=== PATIENT | female | born 1955 | race Caucasian/White ===

== ENCOUNTER → 2018-08-18 | Outpatient (CLI) | payer OTHER ==
--- NOTE | 2018-08-18 10:46 | KCIC ---
EXAM: MRI LEFT KNEE DATE: 08/18/2018 8:00 AM CLINICAL INDICATION: Left knee pain. COMPARISON: None. TECHNIQUE: Multiplanar, multisequence MRI of the left knee was performed without contrast. FINDINGS: Note, exam is mildly limited as the dedicated knee coil was unable to be used given sizing limitations. Small joint body is seen within the lateral suprapatellar gutter. Small knee joint effusion. No Cesar's cyst. The ACL and PCL are intact. The MCL, fibular collateral ligament, biceps femoris and IT band are intact. The popliteus tendon is normal in signal and morphology, intact. Extensor mechanism is intact with lateral patellar tracking. Medial meniscus: There is blunting of the body segment of the medial meniscus with irregular margins consistent with radial tear. Mild blunting of the posterior horn to be seen with prior meniscectomy change. Lateral meniscus: Intact Full-thickness chondral effacement of the patella with subchondral edema and cystic change. In addition lateral trochlear chondral thinning is seen. In addition there are regions of chondral thinning and chondral effacement with subchondral cystic change and edema of the medial compartment. Tricompartmental osteophytes are seen. Suprapatellar fat pad edema may be seen with anterior knee pain/impingement. IMPRESSION: 1. Blunting of the posterior horn and body of the medial meniscus likely from prior meniscectomy. However increased signal and irregularity in the body segment likely superimposed meniscal tear. 2. Left knee joint osteoarthritis with medial and patellofemoral compartment chondral effacement and thinning with subchondral cystic change and edema. Associated tricompartmental osteophytes are seen. 3. Small joint body is suspected within the lateral suprapatellar gutter Electronically signed by: Elton Javier MD (08/18/2018 10:44 AM) [facility]-[id number]
== END | disposition home or self-care (01) ==
LOC: KCIC MRI 07:50
PROVIDERS: ATTEND Orthopaedic Surgery
DX: M17.12 Unilateral primary osteoarthritis, left knee (principal); M25.762 Osteophyte, left knee; M25.462 Effusion, left knee; R60.0 Localized edema
CPT/HCPCS: 73721

== ENCOUNTER → 2018-11-19 | Outpatient (CLI) | payer OTHER ==
--- NOTE | 2018-11-19 10:08 | KCIC ---
MRI Lumbar Spine without contrast History: Previous falls, right low back pain into the right lower extremity, numbness Technique: Multiplanar, multi sequential noncontrast MR imaging was performed of the lumbar spine. Comparison: None Findings: Lumbar vertebral body stature is overall preserved. There is grade 1 anterior spondylolisthesis at L4-5 and to lesser degree at L5-S1, negligible posterior subluxation L3 relative to L4. Conus terminates near L1. There is moderate degenerative disc disease at L3-4, to lesser degree L4-5 and L2-3, mild degenerative disease at L1-2, mild disc desiccation L5-S1. There is very minimal L2-3 endplate edema likely reactive/degenerative in etiology. There is degenerative endplate change at L3-4 and L5-S1. There is large hemangioma of the T11 vertebral body. There is very mild levoscoliosis of the lumbar spine. L1-L2: There is minimal disc osteophyte complex and bulge. Spinal canal and neural foramina are adequate. L2-L3: There is minimal disc osteophyte complex with superimposed shallow protrusion eccentric to the right lateral recess about 2 mm AP. There is mild narrowing of the far right lateral recess. There is mild buckling of the ligamentum flavum and facet degenerative change. Neural foramina are overall adequate. L3-L4: There is negligible disc osteophyte complex and bulge. There is mild buckling of the ligamentum flavum and facet hypertrophic change. Spinal canal is overall adequate. There is mild narrowing of the left neural foramen, right neural foramen adequate. L4-L5: There is moderate to severe facet degenerative change and moderate buckling of the ligamentum flavum. There is partial uncovering of the posterior aspect of the disc due to spondylolisthesis, minimal superimposed disc osteophyte complex. There is [id number] narrowing of the far lateral recesses greater on the left, also mild narrowing of the central canal. There is mild left and moderate right neural foramina compromise by disc osteophyte complex contacting undersurface exiting right L4 nerve root greater distally in the neural foramen. L5-S1: There is moderate facet degenerative change greater on the left. Spinal canal and neural foramina are adequate. Impression: 1. There is multilevel mild abnormal alignment as stated most notable grade 1 anterior spondylolisthesis at L4-5. There is multilevel facet degenerative change. There is degenerative disc disease greatest at L3-4, mild spondylosis. 2. There is [id number] narrowing of the far lateral recesses greater on the left at L4-5, also mild narrowing of the central canal at the level. 3. There is moderate right and mild left L4-5 neural foramina compromise, minimal narrowing on the left at L3-4. Electronically signed by: Ben Lei MD (11/19/2018 10:05 AM) [facility]-[id number]
== END | disposition home or self-care (01) ==
LOC: KCIC MRI 09:03
PROVIDERS: ATTEND Anesthesiology Pain Medicine
DX: M43.17 Spondylolisthesis, lumbosacral region (principal); M47.27 Other spondylosis with radiculopathy, lumbosacral region; M48.061 Spinal stenosis, lumbar region without neurogenic claudication; M51.16 Intervertebral disc disorders with radiculopathy, lumbar region; M41.86 Other forms of scoliosis, lumbar region; M25.78 Osteophyte, vertebrae
CPT/HCPCS: 72148

== ENCOUNTER → 2019-12-29 | Outpatient (CLI) | payer OTHER ==
--- NOTE | 2019-12-29 13:16 | KCIC ---
STUDY: MRI of the right shoulder without contrast INDICATION: Right shoulder pain. Decreased range of motion. COMPARISON: None available. TECHNIQUE: Multiplanar MR imaging of the right shoulder performed without the use of intravenous or intra-articular contrast. FINDINGS: Degraded study due to motion artifact. AC joint: Subacromial decompression and presumed distal clavicular resection. Heterogeneous fluid mildly distends the subacromial subdeltoid bursa measuring up to 4.5 mm in thickness. Rotator cuff: Close assessment of the cuff is made difficult by motion. Heterogeneous signal and morphology of the supraspinatus both at and medial to the footprint. There is presumably high-grade tearing at a few locations with 75 percent or more cross-sectional involvement. Background tendinosis. Heterogeneity and partial tearing of the infraspinatus as well, most pronounced anteriorly to the supraspinatus/infraspinatus junction, which is at least intermediate grade with 50 percent or more cross-sectional involvement. The teres minor is intact. Subscapularis tendinosis and partial-thickness articular sided tearing. Mild supraspinatus, infraspinatus and subscapularis fatty infiltration without significant atrophy. Labrum: Multifocal labral degeneration/degenerative tearing. Long head biceps tendon: Nonvisualized within the bicipital groove either fully torn and retracted or surgically released. Cartilage: Difficult to evaluate due to motion. Subchondral cystic change at the superior glenoid suggest chondrosis in this region. The humeral head cartilage is incompletely assessed. Bones: Degenerative osseous proliferation at the greater tuberosity and to a lesser extent at the lesser tuberosity. No acute fracture. Miscellaneous: Small shoulder effusion. Mild deltoid muscular fatty infiltration. Scattered subcentimeter axillary lymph nodes. Small volume mildly complex fluid within the empty long head biceps tendon sheath. Impression: 1. The study is degraded by motion artifact limiting the diagnostic utility. 2. Very heterogeneous signal and morphology of the supraspinatus more so than the infraspinatus related to a combination of tendinosis and partial-thickness tearing, as detailed above. No large full-thickness tear defect is identified but small full-thickness components are difficult to exclude. Tendinosis and partial-thickness articular sided tearing of the subscapularis as well. Mild fatty infiltration of the rotator cuff muscles with the exception of the teres minor. 3. Multifocal labral degeneration/degenerative tearing. The long head biceps tendon is not visualized within the bicipital groove either fully torn and retracted or surgically released. Correlate with prior surgical history. 4. Presumed glenoid chondral loss superiorly. Humeral head cartilage is poorly evaluated due to motion. 5. Mild subacromial subdeltoid bursitis and a small shoulder joint effusion. Electronically signed by: DANELLE JONES MD (12/29/2019 1:13 PM) [id number]
== END ==
LOC: KCIC MRI 07:49
PROVIDERS: ATTEND Orthopaedic Surgery
DX: M75.111 Incomplete rotator cuff tear or rupture of right shoulder, not specified as traumatic (principal); M75.51 Bursitis of right shoulder; M25.411 Effusion, right shoulder
CPT/HCPCS: 73221

== ENCOUNTER → 2020-05-29 | Outpatient (CLI) | payer OTHER ==
--- NOTE | 2020-05-29 13:24 | KCIC ---
MR LUMBAR SPINE WO [id number] Date: 05/29/2020 11:30 AM Indication: Reason: LUMBAR STENOSIS/NEUROGENIC CLAUDICATION / Spl. Instructions: / History: Worseni ng LBP with BLE radiculopathy. Prioe surg 06/2019. Comparison: 11/19/2018. Technique: Multi-planar multi-weighted magnetic resonance imaging of the lumbar spine was performed w ithout intravenous contrast using the standard lumbar spine protocol. FINDINGS: Postsurgical changes of interval posterior decompression at L4-5. Trace retrolisthesis at L3-4. 8 mm anterolisthesis at L4-5. Trace anterolisthesis at L5-S1. No acute fracture. Mild to moderate multilevel degenerative disc desiccation and disc height loss. Degenerativ e endplate edema at L4-5, and to a lesser extent L2-3 and L3-4. The conus terminates at a normal level. No abnormal signal is seen within the visualized distal spina l cord. No clumping of intrathecal nerve roots. No soft tissue abnormality in the visualized abdomen or pelvis. T12-L1: Disc bulge. Mild facet arthropathy. No significant spinal stenosis or neural foraminal narrow ing. L1-L2: Disc bulge. Mild facet arthropathy. No significant spinal stenosis. Mild bilateral neural fora dilma narrowing. L2-L3: Disc bulge. Mild facet arthropathy. No significant spinal stenosis. Mild bilateral neural fora dilma narrowing. L3-L4: Disc bulge. Mild facet arthropathy. Mild spinal stenosis and lateral recess narrowing. Moderat e bilateral neural foraminal narrowing. L4-L5: Posterior decompression. Severe facet arthropathy. Mild spinal canal stenosis. Soft tissue in the lateral recesses and neural foramen could be disc material or granulation tissue, incompletely ch aracterized without intravenous contrast. Moderate right and mild left lateral recess narrowing. Mode rate to severe neuroforaminal narrowing. L5-S1: Disc bulge. Moderate right and severe left facet arthropathy. No significant spinal stenosis o r neural foraminal narrowing. IMPRESSION: Lumbar spondylosis, detailed level by level above. Interval posterior decompression at L4-5. Electronically signed by: Ben Clemons MD (05/29/2020 1:22 PM) [id number]
--- NOTE | 2020-05-29 16:51 | KCIC ---
Study: XR LUMBAR SPINE 2-3V Indication: Lumbar stenosis. Neurogenic claudication. Worsening low back pain with bilateral lower ex tremity radiculopathy. Comparison: Lumbar spine MRI also performed on 05/29/2020 Findings: The extent of anterolisthesis of L4 on L5 appears greater by radiography relative to the MRI measurin g approximately 1.2 cm compared to 0.7 cm. No appreciable change in the degree of anterolisthesis upo n flexion or extension. Mild retrolisthesis of L3 on L4 that does not change with flexion/extension. Discogenic arthrosis with disc space narrowing mainly from L1-L2 through L4-L5. Predominantly lower l umbar facet degeneration favored greatest at L4-L5. Impression: Anterolisthesis of L4 on L5 is more pronounced by radiography relative to the same day MRI but there is no appreciable change in the degree of listhesis with flexion or extension. Mild retrolisthesis of L3 on L4 without pathologic motion. Multilevel facet degeneration and discogenic arthrosis better ev aluated on the MRI. Electronically signed by: DANELLE JONES MD (05/29/2020 4:48 PM) [id number]
== END ==
LOC: KCIC MRI 10:47
PROVIDERS: ATTEND Physician Assistant
DX: M47.26 Other spondylosis with radiculopathy, lumbar region (principal); M51.16 Intervertebral disc disorders with radiculopathy, lumbar region; M53.3 Sacrococcygeal disorders, not elsewhere classified; M48.062 Spinal stenosis, lumbar region with neurogenic claudication; M12.88 Other specific arthropathies, not elsewhere classified, other specified site; M43.16 Spondylolisthesis, lumbar region; M48.8X6 Other specified spondylopathies, lumbar region
CPT/HCPCS: 72100; 72148

== ENCOUNTER → 2021-06-20 | Outpatient (CLI) | payer OTHER ==
--- NOTE | 2021-06-20 17:08 | KCIC ---
EXAM: MRI right shoulder DATE: 06/20/2021 8:35 AM COMPARISON: None INDICATION: RIGHT SHOULDER PAIN-Chronic rt shoulder pain, injured shaking out a rug. TECHNIQUE: Multiplanar, multisequence MRI of the right shoulder was performed without contrast. FINDINGS: No right shoulder joint effusion. Moderate subacromial-subdeltoid bursal edema with associated debris , bursitis. Type II acromion. Trace of distal clavicular resection are seen. No os acromiale. Full-thickness, full width tear of the supraspinatus and infraspinatus tendon and full-thickness, sub total width tear of the subscapularis tendon is seen. Mild fatty atrophy of the subscapularis, supras pinatus and infraspinatus muscle bellies. Intra-articular portion long head biceps tendon is not seen, possibly prior tenotomy or tear. Full-thickness cartilage defect superior glenoid with subchondral edema and cystic change. No discret e labral tear is seen. Thickening of the inferior glenohumeral ligament/joint capsule. IMPRESSION: 1. Full-thickness, full width tear of the supraspinatus and infraspinatus tendon and full-thickness, subtotal with tear of the subscapularis tendon. Tenderness retraction to the AC joint. 2. Subacromial subdeltoid bursitis 3. Long head biceps tendon is not seen, possibly tenotomy or tear. Electronically signed by: Elton Javier MD (06/20/2021 5:06 PM) [id number]
== END ==
LOC: KCIC MRI 08:20
PROVIDERS: ATTEND Orthopaedic Surgery
DX: M75.121 Complete rotator cuff tear or rupture of right shoulder, not specified as traumatic (principal); M75.51 Bursitis of right shoulder
CPT/HCPCS: 73221